=== PATIENT | male | born 1990 | race Caucasian/White ===

== ENCOUNTER 2020-05-05 08:24 | Emergency (ER) | payer OTHER ==
[2020-05-05 08:31] VITALS: BP 130/80; PULSE 82; TEMP 98.2; BMI 32.9
[2020-05-05] MEDS ORDERED: ONDANSETRON *ODT* 4 MG TABLET SL ONE (09:48)
[2020-05-05] MEDS ORDERED: ONDANSETRON *ODT* 4 MG TABLET ONE (09:58)
[2020-05-05 10:19] LABS: BASO % 0.6 % (0-2.0); EOS % 1.9 % (0-4.5); HEMATOCRIT 40.6 % (35.4-49); HEMOGLOBIN 13.9 GM/dL (11.7-16.9); LYMPH % 27.2 % (8-40); MCH 29.3 pg (25.7-33.7); MCHC 34.3 g/dl (32.0-35.9); MEAN CELL VOLUME 85.5 fl (80-96); MEAN PLT VOLUME 9.6 fl (7.5-11.1); NEUT % 63.3 % (42.8-82.8); PLATELET COUNT 206 K/MM3 (134-434); RBC 4.75 M/mm3 (4.00-5.60); RDW 13.4 % (11.9-15.9); WHITE BLOOD COUNT 7.5 K/mm3 (4.0-10.0)
[2020-05-05 10:45] LABS: POTASSIUM 4.4 mmol/L (3.5-5.1)
[2020-05-05 10:47] LABS: CALCIUM 8.9 mg/dL (8.5-10.1)
[2020-05-05 10:48] LABS: BLOOD UREA NITROGEN 8.4 mg/dL (7-18)
[2020-05-05 10:51] LABS: CREATININE 0.8 mg/dL (0.55-1.3)
[2020-05-05 10:52] LABS: BILIRUBIN,TOTAL 0.3 mg/dL (0.2-1); TOT PROT 7.4 g/dl (6.4-8.2)
== END 2020-05-05 11:37 | disposition home or self-care (01) ==
LOC: JER 08:24
DX: R11.0 Nausea (principal)
CPT/HCPCS: 36415; 80053; 83690; 83735; 85025; 99283-25; Q0162

== ENCOUNTER 2021-09-04 10:46 | Emergency (ER) | payer OTHER ==
[2021-09-04 11:08] VITALS: BP 130/84; PULSE 75; TEMP 97.9; BMI 31.6
[2021-09-04] MEDS ORDERED: SODIUM CHLORIDE 0.9% 500 ML INFUS.BAG IV ONE (11:39)
[2021-09-04] MEDS ORDERED: FAMOTIDINE 20 MG/50 ML IVPB 20 MG/50 ML MG IVPB ONE ×2 (11:39→12:09)
[2021-09-04] MEDS ORDERED: ONDANSETRON 4 MG/2 ML VIAL IVPUSH ONE (11:39)
[2021-09-04] MEDS ORDERED: MAG HYDROX/AL HYDROX/SIMETH 30 ML UNIT-DOSE CUP PO ONE (11:39)
[2021-09-04] MEDS ORDERED: ONDANSETRON 4 MG/2 ML VIAL ONE (12:06)
[2021-09-04] MEDS ORDERED: MAG HYDROX/AL HYDROX/SIMETH 30 ML UNIT-DOSE CUP ONE (12:06)
[2021-09-04] MEDS ORDERED: FAMOTIDINE 10 MG/ML VIAL IVPB ONE (12:29)
[2021-09-04] MEDS ORDERED: FAMOTIDINE/PF 20 MG/2 ML VIAL IVPB ONE (12:30)
[2021-09-04 12:35] LABS: BASO % 0.4 % (0-2.0); EOS % 1.9 % (0-4.5); HEMATOCRIT 41.5 % (35.4-49); HEMOGLOBIN 14.1 GM/dL (11.7-16.9); LYMPH % 25.9 % (8-40); MCH 28.8 pg (25.7-33.7); MCHC 33.9 g/dl (32.0-35.9); MEAN CELL VOLUME 84.9 fl (80-96); NEUT % 63.8 % (42.8-82.8); PLATELET COUNT 271 10^3/uL (134-434); RBC 4.89 M/mm3 (4.00-5.60); RDW 13.3 % (11.9-15.9); WHITE BLOOD COUNT 8.8 K/mm3 (4.0-10.0)
[2021-09-04 12:59] LABS: CALCIUM 9.3 mg/dL (8.5-10.1)
[2021-09-04 13:00] LABS: ALBUMIN 4.2 g/dl (3.4-5.0); BLOOD UREA NITROGEN 8.9 mg/dL (7-18)
[2021-09-04 13:03] LABS: CREATININE 0.8 mg/dL (0.55-1.3)
[2021-09-04 13:04] LABS: BILIRUBIN,TOTAL 0.3 mg/dL (0.2-1); TOT PROT 7.8 g/dl (6.4-8.2)
== END 2021-09-04 16:18 | disposition home or self-care (01) ==
LOC: JER 10:46
PROC: 3E033GC Introduction of Other Therapeutic Substance into Peripheral Vein, Percutaneous Approach (ICD-10-PCS; principal; 2021-09-04)
DX: R10.13 Epigastric pain (principal)
CPT/HCPCS: 36415; 71046-TC-FY; 80053; 83690; 84484; 85025; 93005; 93010; 96374; 96375; 99285-25

== ENCOUNTER 2024-02-08 15:20 | Emergency (ER) | payer OTHER ==
[2024-02-08 15:27] VITALS: BP 122/72; PULSE 66; RESP 18; TEMP 98.4; BMI 32.5
[2024-02-08] MEDS ORDERED: ACETAMINOPHEN 500 MG TABLET (FP) ONE (16:38)
[2024-02-08] MEDS ORDERED: DIPHTH,PERTUSS(ACELL),TET 0.5 ML DISP.SYRIN IM ONE (16:38)
[2024-02-08] MEDS: DIPHTH,PERTUSS(ACELL),TET 0.5 ML DISP.SYRIN IM ONE (16:43)
[2024-02-08] MEDS: ACETAMINOPHEN 500 MG TABLET (FP) PO ONE (16:44)
== END 2024-02-08 17:29 | disposition home or self-care (01) ==
LOC: JERFT 15:20
PROC: 0XQPXZZ Repair Left Index Finger, External Approach (ICD-10-PCS; principal; 2024-02-08)
DX: S61.211A Laceration without foreign body of left index finger without damage to nail, initial encounter (principal); W26.8XXA Contact with other sharp object(s), not elsewhere classified, initial encounter
CPT/HCPCS: 73140-TC-LT-FY; 90715; 99283-25